=== PATIENT | female | born 1950 ===

== ENCOUNTER 2019-03-24 06:09 | Day surgery (SDC) | payer OTHER ==
[~2019-03-24 06:09] MED LIST: ADVAIR 100-501 EACH IH; ASPIRIN81 M1 PO; CARDURA8 MG PO; COZAAR25 MG PO; DILTIAZEM PO; FEOSOL325 MG PO; LASIX20 MG PO; SINGULAIR10 MG PO; TRAZODONE PO; ZINC LOZENGES1 EACH PO
== END 2019-03-24 17:00 | disposition home or self-care (01) ==
LOC: CIR.AMB 06:09
DX: M75.122 Complete rotator cuff tear or rupture of left shoulder, not specified as traumatic (principal)